=== PATIENT | female | born 1965 | race Caucasian/White ===

== ENCOUNTER 2017-12-01 09:13 | Inpatient (IN) | payer OTHER ==
[~2017-12-01] VITALS: Ht 160 cm; Wt 71.7 kg
[2017-12-06] MEDS ORDERED: PROTONIX40 MG PO (10:48)
[2017-12-06] MEDS ORDERED: BIOTIN1 MG PO (10:49)
[2017-12-06] MEDS ORDERED: CARAFATE1 GM PO (10:49)
[2017-12-06] MEDS ORDERED: PROVENTIL HFA6.7 GM IH (10:49)
[2017-12-06] MEDS ORDERED: CHLORDIAZEPOXI1 EACH PO (10:50)
[2017-12-06] MEDS ORDERED: RELAFEN PO (10:51)
[2017-12-06] MEDS ORDERED: TRAMADOL HCL50 MG PO (10:51)
[2017-12-19] MEDS ORDERED: MEDROLPACK PO (14:57)
[2017-12-19] MEDS ORDERED: DICLOFENAC POTA50 MG PO (14:58)
[2017-12-19] MEDS ORDERED: ULTRACET PO (14:58)
[2017-12-19] MEDS ORDERED: ZANTAC300 MG PO (14:58)
== END 2017-12-19 17:38 | disposition home or self-care (01) | DRG 336 ==
LOC: O/R 12-14 07:22 → SURG 12-14 12:12 → SURH 12-14 15:15 → SURG 12-19 17:38
PROVIDERS: Surgery
PROC: 3E0F7GC Introduction of Other Therapeutic Substance into Respiratory Tract, Via Natural or Artificial Opening (ICD-10-PCS; 2017-12-14)
PROC: 0DNN4ZZ Release Sigmoid Colon, Percutaneous Endoscopic Approach (ICD-10-PCS; principal; 2017-12-14 23:45)
DX: K66.0 Peritoneal adhesions (postprocedural) (postinfection) (principal); J45.21 Mild intermittent asthma with (acute) exacerbation; J95.89 Other postprocedural complications and disorders of respiratory system, not elsewhere classified; J98.11 Atelectasis; D64.89 Other specified anemias; G43.809 Other migraine, not intractable, without status migrainosus

== ENCOUNTER 2018-12-02 11:42 | Emergency (ER) | payer OTHER ==
[~2018-12-02] VITALS: Ht 160 cm; Wt 72.1 kg
[~2018-12-02 11:42] MED LIST: BIOTIN1 MG PO; CARAFATE1 GM PO; CHLORDIAZEPOXI1 EACH PO; DICLOFENAC POTA50 MG PO; MEDROLPACK PO; PROTONIX40 MG PO; PROVENTIL HFA6.7 GM IH; RELAFEN PO; TRAMADOL HCL50 MG PO; ULTRACET PO; ZANTAC300 MG PO
[2018-12-02] MEDS ORDERED: LEVSIN/SL0.125 MG (12:21)
== END 2018-12-02 14:48 | disposition home or self-care (01) ==
LOC: ER 11:42
DX: K62.89 Other specified diseases of anus and rectum (principal); R10.30 Lower abdominal pain, unspecified